=== PATIENT | male | born 1995 | race Caucasian/White ===

== ENCOUNTER → 2016-08-27 | Outpatient (CLI) | payer BC ==
[~2016-08-27] MED LIST: ALLDSR/24 PO; GADAVIST IV PRN
--- NOTE | 2016-08-27 12:16 | DIAGNOSTIC IMAGING REPORT ---
Brain MRI WITH AND WITHOUT CONTRAST HISTORY: HEAD INJURY TECHNIQUE: Multiplanar multisequence MRI of the brain was performed both before and after the intravenous administration of contrast. COMPARISON STUDY: Brain MRI 09/11/2015. FINDINGS: There are no areas of restricted diffusion to suggest acute infarction. The midline structures are intact. Stable retention cyst within the right maxillary sinus. The mastoid air cells are clear. The ventricles and sulci are within normal limits for age. There is no mass, hematoma, midline shift. The major vascular flow-voids at the skull base are well maintained. Postcontrast sequences show no areas of abnormal enhancement. IMPRESSION: No acute intracranial abnormality. Electronically signed by: Papito Sifuentes M.D. 08/27/2016 12:14 PM Dictated Date/Time: 08/27/2016 12:05 PM
== END | disposition home or self-care (01) ==
LOC: C.MRIBC 10:45
PROVIDERS: ATTEND Psychiatry & Neurology Neurology
DX: S09.90XA Unspecified injury of head, initial encounter (principal); X58.XXXA Exposure to other specified factors, initial encounter

== ENCOUNTER → 2016-09-03 | Outpatient (CLI) | payer BC ==
[~2016-09-03] MED LIST changes: -GADAVIST IV PRN
--- NOTE | 2016-09-03 16:06 | EEG Procedure Note ---
EEG Procedure Note Date of Service Sep 03, 2016. Start / End Times Start Time: 8:07 AM End Time: 8:27 AM Referring Physician Vanessa Case History This is a 20-year-old male with spells and reported loss of body control. EEG for further evaluation of possible seizure etiology. Home Medication List Miscellaneous Medications Fexofenadine-Pseudoephedrine (Yudelka-D 24 Hour Allergy), 1 TAB PO Description This is a 21 electrode EEG with a single channel dedicated to limited EKG. The electrodes were placed in accordance with the International 10-20 system. At the start of the recording the patient was in an awake state. Background was well organized and composed of symmetric mixed alpha and beta frequencies. There was a symmetric well-formed moderate amplitude 10-11 Hz posterior dominant rhythm that was reactive to eye opening and closure. Hyperventilation with good effort produced no abnormalities. Intermittent photic stimulation at various frequencies produced no abnormalities. There was no state changes or sleep transients. Interpretation This is a normal awake only routine EEG. There was no electrographic seizures or epileptiform discharges. Clinical Correlation A normal EEG does not rule out epilepsy if there is a strong clinical suspicion.
== END | disposition home or self-care (01) ==
LOC: C.NEUR 07:48
PROVIDERS: ATTEND Psychiatry & Neurology Neurology
DX: R68.89 Other general symptoms and signs (principal)